=== PATIENT | male | born 1975 ===

== ENCOUNTER 2024-11-11 11:30 | Inpatient (IN) | payer OTHER ==
[~2024-11-11] VITALS: Ht 182.9 cm; Wt 131.5 kg
[2024-11-11] MEDS ORDERED: METFORMIN HCL500 M3 PO (12:50)
[2024-11-11] MEDS ORDERED: LIPOFEN150 MG PO (12:51)
[2024-11-11] MEDS ORDERED: TRULICITY1.5 MG/0.5 (12:51)
[2024-11-11] MEDS ORDERED: SYNTHROID300 MCG PO (12:51)
[2024-11-11] MEDS ORDERED: LOSARTAN POTASS50 MG PO (13:04)
[2024-11-11 13:09] VITALS: BP 140/90
[2024-11-11] MEDS ORDERED: DULOXETINE HCL40 MG PO (14:11)
[2024-11-11] MEDS ORDERED: HORIZANT600 MG PO (14:11)
[2024-11-11] MEDS ORDERED: BACLOFEN20 MG PO (14:11)
[2024-11-11] MEDS ORDERED: CYMBALTA30 MG PO (14:11)
[2024-11-11] MEDS ORDERED: TOPROL XL100 M1 (14:12)
[2024-11-11] MEDS ORDERED: TAMSULOSIN HCL0.4 MG (14:12)
[2024-11-11] MEDS ORDERED: SOVUNA200 MG PO (14:13)
[2024-11-11] MEDS ORDERED: ECOTRIN81 MG (14:13)
[2024-11-11] MEDS ORDERED: AMITRIPTYLINE H75 MG (14:14)
[2024-11-11] MEDS ORDERED: CLONAZEPAM2 MG PO (14:14)
[2024-11-19] MEDS ORDERED: METRONIDAZOLE/SODIUM CHLORIDE 500 MG/100 ML PIGGYBACK IV ONE ×2 (12:46→16:45)
[2024-11-19] MEDS ORDERED: CEFTRIAXONE SODIUM 2,000 MG VIAL ONE (12:46)
[2024-11-19] MEDS ORDERED: BUPIVACAINE HCL/MPF 0.5% 30ML VIAL ONE (12:46)
[2024-11-19] MEDS ORDERED: LIDOCAINE HCL 1%/EPINEPHRINE 20ML VIAL IJ ONE (13:22)
[2024-11-19] MEDS ORDERED: SUGAMMADEX SODIUM 200 MG/2 ML VIAL IV ONE (14:21)
[2024-11-19] MEDS ORDERED: 0.9 % SODIUM CHLORIDE 1,000 ML IV SCH (15:30)
[2024-11-19] MEDS ORDERED: MORPHINE SULFATE 4 MG/ML CARTRIDGE IV PRN (15:30)
[2024-11-19] MEDS ORDERED: ENALAPRILAT DIHYDRATE 1.25 MG/ML VIAL IV PRN (15:30)
[2024-11-19] MEDS ORDERED: DEXTROSE 50 % IN WATER 0.5 G/ML DISP.SYRIN IV PRN (15:30)
[2024-11-19] MEDS ORDERED: OxyCODONE HCL 5 MG TABLET (ROXICODONE) PO PRN (15:30)
[2024-11-19] MEDS ORDERED: ONDANSETRON HCL 2 MG/ML VIAL IV PRN (15:30)
[2024-11-19] MEDS ORDERED: MORPHINE SULFATE 4 MG/ML VIAL IV ONE ×2 (16:25→16:55)
[2024-11-19] MEDS ORDERED: HYOSCYAMINE SULFATE 0.125 MG TAB.SUBL SL SCH (17:00)
[2024-11-19] MEDS ORDERED: POLYETHYLENE GLYCOL 3350 17 GM BLIST.PACK PO SCH (17:00)
[2024-11-19] MEDS ORDERED: GABAPENTIN 300 MG CAPSULE PO SCH (17:00)
[2024-11-19] MEDS ORDERED: METRONIDAZOLE/SODIUM CHLORIDE 500 MG/100 ML PIGGYBACK IV SCH (17:00)
[2024-11-19 18:14] LABS: HEMATOCRIT 41.4 % (39.0-48.0); HEMOGLOBIN 13.5 g/dL (13-16.00); MEAN CELL VOLUME 82.8 fL (80.0-100.00); MEAN CORPUSCULAR HGB CONC 32.6 g/dl (32.0-36.0); PLATELET COUNT 195 K/uL (150-450); RED BLOOD COUNT 4.99 M/uL (4.00-6.00); RED CELL DISTRIBUTION WIDTH 15.4 % (11.5-14.5)
[2024-11-19 18:41] LABS: ALBUMIN 3.4 gm/dL (3.4-5.0); CALCIUM 8.6 mg/dL (8.5-10.1); CREATININE SERUM 0.8 mg/dL (0.70-1.30); GFR 101.91; MAGNESIUM 1.9 mg/dL (1.8-2.4); PHOSPHOROUS 3.2 mg/dL (2.5-4.9); POTASSIUM 4.29 mEq/L (3.5-5.1)
[2024-11-19] MEDS ORDERED: ACETAMINOPHEN 500 MG GEL..CAP PO SCH (20:00)
[2024-11-19 20:09] VITALS: BP 144/77; O2SAT 89
[2024-11-19] MEDS ORDERED: FAMOTIDINE/PF 20 MG/2 ML VIAL IV PUSH SCH (21:00)
[2024-11-19] MEDS ORDERED: CELECOXIB 200 MG CAPSULE PO SCH (21:00)
[2024-11-19] MEDS ORDERED: TAMSULOSIN HCL 0.4 MG CAP PO SCH (21:00)
[2024-11-20 00:14] VITALS: BP 164/91; O2SAT 97
[2024-11-20 03:24] VITALS: BP 113/78; O2SAT 100
[2024-11-20] MEDS ORDERED: LEVOTHYROXINE SODIUM 300 MCG PO SCH (06:00)
[2024-11-20 06:52] LABS: HEMATOCRIT 41.7 % (39.0-48.0); HEMOGLOBIN 13.8 g/dL (13-16.00); MEAN CELL VOLUME 81.8 fL (80.0-100.00); PLATELET COUNT 186 K/uL (150-450); RED CELL DISTRIBUTION WIDTH 15.4 % (11.5-14.5)
[2024-11-20 07:23] LABS: ALBUMIN 3.3 gm/dL (3.4-5.0); CALCIUM 8.6 mg/dL (8.5-10.1); CREATININE SERUM 0.59 mg/dL (0.70-1.30); GFR 144.82; PHOSPHOROUS 2.6 mg/dL (2.5-4.9); POTASSIUM 4.23 mEq/L (3.5-5.1)
[2024-11-20 08:31] VITALS: BP 137/85; O2SAT 98
[2024-11-20] MEDS ORDERED: METOPROLOL SUCCINATE 100 MG TAB.SR.24H PO SCH (09:00)
[2024-11-20 16:47] VITALS: BP 100/70; O2SAT 95
[2024-11-20] MEDS ORDERED: ENOXAPARIN SODIUM 40 MG/0.4 ML SYRINGE SUBCUTANEO SCH (17:00)
[2024-11-20] MEDS ORDERED: CLONAZEPAM 1 MG TABLET PO SCH (21:00)
[2024-11-21 00:29] VITALS: BP 113/75; O2SAT 99
[2024-11-21 08:00] VITALS: BP 128/85; O2SAT 100
[2024-11-21] MEDS ORDERED: ENOXAPARIN SODIUM 40 MG/0.4 ML SYRINGE SUBCUTANEO SCH (09:00)
[2024-11-21 16:17] VITALS: BP 107/70; O2SAT 98
[2024-11-22 00:14] VITALS: BP 120/68; O2SAT 96
[2024-11-22 08:58] VITALS: BP 134/85; O2SAT 98
[2024-11-22] MEDS ORDERED: CELEBREX200MG PO (12:31)
[2024-11-22] MEDS ORDERED: HYOSCYAMINE0.125 M1 SL (12:31)
== END 2024-11-22 15:48 | disposition home or self-care (01) | DRG 331 ==
LOC: O/R 11-19 07:10 → SURH 11-19 07:10
PROVIDERS: ADMIT Surgery; ATTEND Surgery
PROC: 07BB4ZZ Excision of Mesenteric Lymphatic, Percutaneous Endoscopic Approach (ICD-10-PCS; 2024-11-19)
PROC: 0DTF4ZZ Resection of Right Large Intestine, Percutaneous Endoscopic Approach (ICD-10-PCS; principal; 2024-11-19 14:30)
DX: D12.3 Benign neoplasm of transverse colon (principal); R19.4 Change in bowel habit; R59.0 Localized enlarged lymph nodes